=== PATIENT | male | born 1945 | race African-American/Black ===

== ENCOUNTER 2021-09-30 19:18 | Inpatient (IN) | payer OTHER, MEDICARE ==
[2021-09-30] MEDS ORDERED: Amlodipine 5 MG TAB PO PRN (21:14)
[2021-09-30 22:38] VITALS: BMI 23.1
[2021-10-01] MEDS: Multivit, Therapeutic 1 TAB PO SCH (08:16)
[2021-10-01] MEDS ORDERED: Senokot S 8.6-50 MG TAB PO SCH (09:00)
[2021-10-01] MEDS ORDERED: Polyethylene Glycol 3350 17 GM Packet PO SCH (09:00)
[2021-10-01] MEDS ORDERED: ALPRAZolam 0.25 MG TAB PO PRN (17:12)
[2021-10-01] MEDS ORDERED: Polyethylene Glycol 3350 17 GM Packet PO PRN (18:24)
[2021-10-01] MEDS: Saccharomyces boulardii 250 MG CAP PO SCH (20:26)
[2021-10-01] MEDS: traZODone HCl 50 MG TAB PO SCH (20:27)
[2021-10-02] MEDS: Multivit, Therapeutic 1 TAB PO SCH (08:11)
[2021-10-02] MEDS: Saccharomyces boulardii 250 MG CAP PO SCH (20:28)
[2021-10-02] MEDS: traZODone HCl 50 MG TAB PO SCH (20:28)
[2021-10-03] MEDS: Multivit, Therapeutic 1 TAB PO SCH (08:39)
[2021-10-03] MEDS: traZODone HCl 50 MG TAB PO SCH (20:45)
[2021-10-03] MEDS: Saccharomyces boulardii 250 MG CAP PO SCH (20:45)
[2021-10-04] MEDS: Multivit, Therapeutic 1 TAB PO SCH (08:08)
[2021-10-04] MEDS: Saccharomyces boulardii 250 MG CAP PO SCH (19:57)
[2021-10-04] MEDS: traZODone HCl 50 MG TAB PO SCH (19:58)
[2021-10-05] MEDS: Multivit, Therapeutic 1 TAB PO SCH (08:09)
[2021-10-05] MEDS: traZODone HCl 50 MG TAB PO SCH (19:59)
[2021-10-05] MEDS: Saccharomyces boulardii 250 MG CAP PO SCH (19:59)
[2021-10-06] MEDS: Multivit, Therapeutic 1 TAB PO SCH (08:03)
[2021-10-06] MEDS: traZODone HCl 50 MG TAB PO SCH (20:26)
[2021-10-06] MEDS: Saccharomyces boulardii 250 MG CAP PO SCH (20:26)
[2021-10-06] MEDS ORDERED: Fluticasone Propionate Nasal Spray 16 gm Bottle NASAL PRN (22:58)
[2021-10-06] MEDS ORDERED: Loratadine 10 MG TAB PO SCH (23:00)
[2021-10-07] MEDS: Multivit, Therapeutic 1 TAB PO SCH (08:09)
[2021-10-07] MEDS: traZODone HCl 50 MG TAB PO SCH (21:30)
[2021-10-07] MEDS: Saccharomyces boulardii 250 MG CAP PO SCH (21:30)
[2021-10-07] MEDS: Loratadine 10 MG TAB PO SCH (21:31)
[2021-10-08] MEDS: Multivit, Therapeutic 1 TAB PO SCH (08:30)
[2021-10-08] MEDS: traZODone HCl 50 MG TAB PO SCH (20:01)
[2021-10-08] MEDS: Loratadine 10 MG TAB PO SCH (20:02)
[2021-10-08] MEDS: Saccharomyces boulardii 250 MG CAP PO SCH (20:02)
[2021-10-09] MEDS: Multivit, Therapeutic 1 TAB PO SCH (08:27)
[2021-10-09] MEDS: Saccharomyces boulardii 250 MG CAP PO SCH (20:16)
[2021-10-09] MEDS: traZODone HCl 50 MG TAB PO SCH (20:16)
[2021-10-09] MEDS: Loratadine 10 MG TAB PO SCH (20:17)
[2021-10-10] MEDS: Multivit, Therapeutic 1 TAB PO SCH (08:21)
[2021-10-10] MEDS: traZODone HCl 50 MG TAB PO SCH (21:44)
[2021-10-10] MEDS: Loratadine 10 MG TAB PO SCH (21:45)
[2021-10-10] MEDS: Saccharomyces boulardii 250 MG CAP PO SCH (21:45)
[2021-10-11] MEDS: Multivit, Therapeutic 1 TAB PO SCH (08:08)
[2021-10-11] MEDS: Saccharomyces boulardii 250 MG CAP PO SCH (20:12)
[2021-10-11] MEDS: Loratadine 10 MG TAB PO SCH (20:12)
[2021-10-11] MEDS: traZODone HCl 50 MG TAB PO SCH (20:12)
[2021-10-12] MEDS: Multivit, Therapeutic 1 TAB PO SCH (08:20)
[2021-10-13] MEDS: Loratadine 10 MG TAB PO SCH ×2 (06:55→20:03)
[2021-10-13] MEDS: Saccharomyces boulardii 250 MG CAP PO SCH ×2 (06:56→20:02)
[2021-10-13] MEDS: traZODone HCl 50 MG TAB PO SCH ×2 (06:56→20:03)
[2021-10-13] MEDS ORDERED: Haloperidol Lactate 5 MG/ML VIAL ONE (08:40)
[2021-10-13] MEDS ORDERED: Haloperidol Lactate 5 MG/ML VIAL IM PRN (09:04)
[2021-10-13] MEDS: Multivit, Therapeutic 1 TAB PO SCH (09:12)
[2021-10-13] MEDS ORDERED: Haloperidol Lactate 5 MG/ML VIAL IM SCH (09:15)
[2021-10-14 07:29] VITALS: BP 119/81; TEMP 98.1
[2021-10-14] MEDS: Multivit, Therapeutic 1 TAB PO SCH (08:12)
== END 2021-10-14 15:55 | disposition home health service (06) | DRG 948 ==
LOC: UNDOADMIN 20:15 → MADMS 20:15
PROVIDERS: ADMIT Family Medicine; ATTEND Family Medicine
DX: R53.81 Other malaise (principal); F03.91 Unspecified dementia, unspecified severity, with behavioral disturbance; R53.1 Weakness; Z20.822 Contact with and (suspected) exposure to COVID-19; K59.00 Constipation, unspecified; J44.9 Chronic obstructive pulmonary disease, unspecified; F51.04 Psychophysiologic insomnia; Z66 Do not resuscitate; Z79.899 Other long term (current) drug therapy; Z87.440 Personal history of urinary (tract) infections; Z98.49 Cataract extraction status, unspecified eye; Z82.3 Family history of stroke; Z83.3 Family history of diabetes mellitus
CPT/HCPCS: J1630; U0003; U0005